=== PATIENT | male | born 1955 | race African-American/Black ===

== ENCOUNTER 2017-04-19 16:32 | Observation (INO) | payer OTHER ==
[2017-04-19 18:05] LABS: HEMATOCRIT 37.7 % (37.9-51.0); HEMOGLOBIN 12.9 g/dL (13.5-17.0); MEAN CORPUSCULAR HEMOGLOBIN 30.4 pg (27.0-33.4); MEAN CORPUSCULAR HGB CONC 34.2 g/dL (32.0-36.0); MEAN CORPUSCULAR VOLUME 89 fl (80-97); RED BLOOD COUNT 4.23 10^6/uL (4.35-5.55); RED CELL DISTRIBUTION WIDTH 13.5 % (11.5-14.0); WHITE BLOOD COUNT 8.2 10^3/uL (4.0-10.5)
[2017-04-19] MEDS: NORMAL SALINE 1000 ML 1,000 ML IV PRN (18:06)
[2017-04-19] MEDS ORDERED: INFLUENZA ADLT QUAD (36MOS+) 2017-18 VAC 0.5 ML SYR IM PRN (18:15)
[2017-04-19 18:37] LABS: ALANINE AMINOTRANSFERASE 28 U/L (21-72); ALBUMIN 4.6 g/dL (3.5-5.0); ALKALINE PHOSPHATASE 75 U/L (38-126); ANION GAP 14 (5-19); ASPARTATE AMINO TRANSFERASE 14 U/L (17-59); BILIRUBIN,DIRECT 0.4 mg/dL (0.0-0.4); BILIRUBIN,TOTAL 0.6 mg/dL (0.2-1.3); BLOOD UREA NITROGEN 39 mg/dL (7-20); CALCIUM 9.5 mg/dL (8.4-10.2); CARBON DIOXIDE 26 mmol/L (22-30); CHLORIDE 101 mmol/L (98-107); CREATINE KINASE 180 U/L (55-170); CREATININE RESULT 1.34 mg/dL (0.52-1.25); GLUCOSE 122 mg/dL (75-110); POTASSIUM 4.5 mmol/L (3.6-5.0); SODIUM 140.6 mmol/L (137-145); TOTAL PROTEIN 7.8 g/dL (6.3-8.2)
[2017-04-19 18:48] LABS: CREATINE KINASE MB 0.88 ng/mL (<4.55); TROPONIN I < 0.012 ng/mL
--- NOTE | 2017-04-19 20:59 | PDOC H&P ---
History of Present Illness Admission Date/PCP: 04/19/17 16:32 BRIANNA LAWSON MD History of Present Illness: NORBERTO DANIELLE is a 61 year old male, He has a history of type 2 diabetes mellitus , He sustained chest wall injury last week with fractures of multiple ribs, he was in the office yesterday for follow-up and for evaluation of intermittent palpitation with chest discomfort, blood work was done this acame back showing a serum creatinine of 1.8 consistent with acute kidney injury the lab work from a month ago showed a normal serum creatinine. Rhabdomyolysis was suspected as the etiology of the acute kidney injury, he was admitted for observation and for management of the acute kidney injury with fluid therapy. His serum creatinine from the blood work done today in the hospital is 1.3. Past Medical History Cardiac Medical History: Reports: Hypertension Endocrine Medical History: Reports: Diabetes Mellitus Type 2 Social History Smoking Status: Never Smoker Drugs: None Family History Parental Family History Reviewed: Yes Children Family History Reviewed: Yes Sibling(s) Family History Reviewed.: Yes Medication/Allergy Home Medications: RX: Aspirin [Ecotrin 81 mg EC Tablet] 81 mg PO DAILY 04/19/17 RX: Glimepiride [Amaryl 4 mg Tablet] 4 mg PO DAILY 04/19/17 RX: Losartan Potassium [Cozaar 100 mg Tablet] 100 mg PO DAILY 04/19/17 RX: Metformin HCl [Glucophage] 1,000 mg PO BID 04/19/17 Allergies/Adverse Reactions: No Known Allergies Allergy (Unverified 04/19/17 17:43) Review of Systems Constitutional: ABSENT: chills, fever(s), headache(s), weight gain, weight loss Eyes: ABSENT: visual disturbances Ears: ABSENT: hearing changes Cardiovascular: PRESENT: chest pain Respiratory: ABSENT: cough, hemoptysis Gastrointestinal: ABSENT: abdominal pain, constipation, diarrhea, hematemesis, hematochezia, nausea, vomiting Genitourinary: ABSENT: dysuria, hematuria Musculoskeletal: ABSENT: joint swelling Integumentary: ABSENT: rash, wounds Neurological: ABSENT: abnormal gait, abnormal speech, confusion, dizziness, focal weakness, syncope Psychiatric: ABSENT: anxiety, depression, homidical ideation, suicidal ideation Endocrine: ABSENT: cold intolerance, heat intolerance, menstrual abnormalities, polydipsia, polyuria Hematologic/Lymphatic: ABSENT: easy bleeding, easy bruising, lymphadenopathy Physical Exam Vital Signs: Temp Pulse Resp BP Pulse Ox 97.6 F 92 16 137/84 H 100 04/19/17 20:11 04/19/17 20:11 04/19/17 20:11 04/19/17 20:11 04/19/17 20:11 Intake & Output 04/18/17 04/19/17 04/20/17 06:59 06:59 06:59 Intake Total 0 Balance 0 Weight 93.7 kg General appearance: PRESENT: no acute distress, well-developed, well-nourished Head exam: PRESENT: atraumatic, normocephalic Eye exam: PRESENT: conjunctiva pink, EOMI, PERRLA. ABSENT: scleral icterus Ear exam: PRESENT: normal external ear exam Mouth exam: PRESENT: moist, tongue midline Neck exam: PRESENT: full ROM Respiratory exam: PRESENT: clear to auscultation mukul Cardiovascular exam: PRESENT: RRR, +S1, +S2 Pulses: PRESENT: normal dorsalis pedis pul, +2 pedal pulses bilateral Vascular exam: PRESENT: normal capillary refill GI/Abdominal exam: PRESENT: normal bowel sounds, soft Rectal exam: PRESENT: deferred Neurological exam: PRESENT: alert, awake, oriented to person, oriented to place , oriented to time, oriented to situation, CN II-XII grossly intact Psychiatric exam: PRESENT: appropriate affect, normal mood Skin exam: PRESENT: dry, intact, warm Results Laboratory Results: 04/19/17 17:45 04/19/17 17:45 04/19/17 04/19/17 17:45 17:45 WBC 8.2 RBC 4.23 L Hgb 12.9 L Hct 37.7 L MCV 89 MCH 30.4 MCHC 34.2 RDW 13.5 Plt Count 329 Sodium 140.6 Potassium 4.5 Chloride 101 Carbon Dioxide 26 Anion Gap 14 BUN 39 H Creatinine 1.34 H Est GFR ( Amer) > 60 Est GFR (Non-Af Amer) 54 L Glucose 122 H Calcium 9.5 Total Bilirubin 0.6 AST 14 L ALT 28 Alkaline Phosphatase 75 Total Protein 7.8 Albumin 4.6 04/19/17 04/19/17 04/19/17 17:45 17:45 17:45 Creatine Kinase 180 H 179 H CK-MB (CK-2) 0.88 Troponin I < 0.012 Assessment & Plan - Diagnosis (1) Acute kidney injury Is this a current diagnosis for this admission?: Yes Plan: Patient was admitted for the management of acute kidney injury in the setting of traumatic rhabdomyolysis (2) Rhabdomyolysis Qualifiers: Rhabdomyolysis type: traumatic Encounter type: initial encounter Qualified Code(s): T79.6XXA - Traumatic ischemia of muscle, initial encounter Is this a current diagnosis for this admission?: Yes
[2017-04-19] MEDS ORDERED: GLIMEPIRIDE 4 MG TABLET PO ONE (21:30)
[2017-04-19] MEDS ORDERED: ASPIRIN 81 MG TABLET, ENT COATED PO ONE (21:30)
--- NOTE | 2017-04-19 21:52 | RADIOLOGY REPORT (SQ) ---
EXAM DESCRIPTION: U/S RETROPERITON (RENAL/AORTA) COMPLETED DATE/TIME: 04/19/2017 7:50 pm REASON FOR STUDY: ACUTE KIDNEY INJURY COMPARISON: None. TECHNIQUE: Dynamic and static grayscale images acquired of the kidneys and bladder and recorded on P ACS. Additional selected color Doppler and spectral images recorded. LIMITATIONS: None. FINDINGS: RIGHT KIDNEY: 12 cm in length. Normal echogenicity. No solid or suspicious masses. S mall cyst is identified measuring 2.0 x 1.7 x 1.5 cm No hydronephrosis. No calcifications. LEFT KIDNEY: 12.1 cm in length. Normal echogenicity. No solid or suspicious masses. There is a questionable tiny subcentimeter cysts. No hydronephrosis. No calcifications. BLADDER: No masses. OTHER FINDINGS: No other significant finding. IMPRESSION: No significant renal abnormalities are identified. Other findings as noted above TECHNICAL DOCUMENTATION: JOB ID: [id number] [employer]- All Rights Reserved
[2017-04-19] MEDS ORDERED: LOSARTAN POTASSIUM 50 MG TABLET PO ONE (22:00)
[2017-04-19] MEDS ORDERED: METFORMIN HCL 500 MG TABLET PO ONE (22:00)
[2017-04-20 07:23] LABS: APPEARANCE,URINE CLEAR; BILIRUBIN,URINE NEGATIVE (NEGATIVE); GLUCOSE, URINE 50 mg/dL (NEGATIVE); KETONES,URINE NEGATIVE (NEGATIVE); LEUKOCYTE ESTERASE,URINE NEGATIVE (NEGATIVE); NITRITE,URINE NEGATIVE (NEGATIVE); PROTEIN,URINE NEGATIVE (NEGATIVE); URINE SPECIFIC GRAVITY 1.012; UROBILINOGEN,URINE NEGATIVE mg/dL (<2.0)
[2017-04-20 07:43] LABS: ANION GAP 13 (5-19); BLOOD UREA NITROGEN 24 mg/dL (7-20); CALCIUM 8.8 mg/dL (8.4-10.2); CARBON DIOXIDE 24 mmol/L (22-30); CHLORIDE 104 mmol/L (98-107); CREATININE RESULT 0.96 mg/dL (0.52-1.25); GLUCOSE 121 mg/dL (75-110); POTASSIUM 4.5 mmol/L (3.6-5.0); SODIUM 140.5 mmol/L (137-145)
--- NOTE | 2017-04-20 08:21 | EKG REPORT ---
SEVERITY:- NORMAL ECG - SINUS RHYTHM : Confirmed by: Omar Schwartz MD 20-Apr-2017 08:20:33
[2017-04-20] MEDS ORDERED: GLIMEPIRIDE 4 MG TABLET PO SCH (10:00)
[2017-04-20] MEDS ORDERED: METFORMIN HCL 500 MG TABLET PO SCH (10:00)
[2017-04-20] MEDS ORDERED: LOSARTAN POTASSIUM 50 MG TABLET PO SCH (10:00)
[2017-04-20] MEDS ORDERED: ASPIRIN 81 MG TABLET, ENT COATED PO SCH (10:00)
[2017-04-20] MEDS: NORMAL SALINE 1000 ML 1,000 ML IV PRN (13:12)
[2017-04-20 13:32] VITALS: BP 131/81
--- NOTE | 2017-04-20 14:36 | PDOC DISCHARGE SUMMARY ---
General - Admit/Disc Date/PCP Admission Date/Primary Care Provider: 04/19/17 16:32 BRIANNA LAWSON MD Discharge Date: 04/20/17 - Discharge Diagnosis (1) Acute kidney injury Is this a current diagnosis for this admission?: Yes (2) Rhabdomyolysis Is this a current diagnosis for this admission?: Yes (3) Traumatic rhabdomyolysis Is this a current diagnosis for this admission?: Yes (4) Type 2 diabetes mellitus Is this a current diagnosis for this admission?: Yes - Additional Information Discharge Diet: Diabetic Discharge Activity: Activity As Tolerated Home Medications: RX: Aspirin [Ecotrin 81 mg EC Tablet] 81 mg PO DAILY 04/19/17 RX: Glimepiride [Amaryl 4 mg Tablet] 4 mg PO DAILY 04/19/17 RX: Losartan Potassium [Cozaar 100 mg Tablet] 100 mg PO DAILY 04/19/17 RX: Metformin HCl [Glucophage] 1,000 mg PO BID 04/19/17 History of Present Illness History of Present Illness: NORBERTO DANIELLE is a 61 year old male, He has a history of type 2 diabetes mellitus , He sustained chest wall injury last week with fractures of multiple ribs, he was in the office yesterday for follow-up and for evaluation of intermittent palpitation with chest discomfort, blood work was done this acame back showing a serum creatinine of 1.8 consistent with acute kidney injury the lab work from a month ago showed a normal serum creatinine. Rhabdomyolysis was suspected as the etiology of the acute kidney injury, he was admitted for observation and for management of the acute kidney injury with fluid therapy. His serum creatinine from the blood work done today in the hospital is 1.3. Hospital Course Hospital Course: Patient was admitted for the management of acute kidney injury secondary to traumatic rhabdomyolysis, he was treated with IV fluid with normalization of kidney function. He was admitted for observation is stable to be discharged home today. Physical Exam Vital Signs: Temp Pulse Resp BP Pulse Ox 97.7 F 73 16 131/81 H 100 04/20/17 13:00 04/20/17 13:00 04/20/17 13:00 04/20/17 13:00 04/20/17 13:00 Intake & Output 04/19/17 04/20/17 04/21/17 06:59 06:59 06:59 Intake Total 2940 Balance 2940 Weight 93.7 kg General appearance: PRESENT: no acute distress, well-developed, well-nourished Head exam: PRESENT: atraumatic, normocephalic Eye exam: PRESENT: conjunctiva pink, EOMI, PERRLA. ABSENT: scleral icterus Ear exam: PRESENT: normal external ear exam Mouth exam: PRESENT: moist, tongue midline Neck exam: PRESENT: full ROM Respiratory exam: PRESENT: clear to auscultation mukul Cardiovascular exam: PRESENT: RRR, +S1, +S2 Pulses: PRESENT: normal dorsalis pedis pul, +2 pedal pulses bilateral Vascular exam: PRESENT: normal capillary refill GI/Abdominal exam: PRESENT: normal bowel sounds, soft Rectal exam: PRESENT: deferred Neurological exam: PRESENT: alert, awake, oriented to person, oriented to place , oriented to time, oriented to situation, CN II-XII grossly intact. ABSENT: motor sensory deficit Psychiatric exam: PRESENT: appropriate affect, normal mood Skin exam: PRESENT: dry, intact, warm Results Laboratory Results: 04/19/17 17:45 04/20/17 06:33 04/19/17 04/19/17 04/20/17 17:45 17:45 06:33 WBC 8.2 RBC 4.23 L Hgb 12.9 L Hct 37.7 L MCV 89 MCH 30.4 MCHC 34.2 RDW 13.5 Plt Count 329 Sodium 140.6 140.5 Potassium 4.5 4.5 Chloride 101 104 Carbon Dioxide 26 24 Anion Gap 14 13 BUN 39 H 24 H Creatinine 1.34 H 0.96 Est GFR ( Amer) > 60 > 60 Est GFR (Non-Af Amer) 54 L > 60 Glucose 122 H 121 H Calcium 9.5 8.8 Total Bilirubin 0.6 AST 14 L ALT 28 Alkaline Phosphatase 75 Total Protein 7.8 Albumin 4.6 Urine Color Urine Appearance Urine pH Ur Specific [place] Urine Protein Urine Glucose (UA) Urine Ketones Urine Blood Urine Nitrite Ur Leukocyte Esterase Urine WBC (Auto) Urine RBC (Auto) 04/20/17 06:40 WBC RBC Hgb Hct MCV MCH MCHC RDW Plt Count Sodium Potassium Chloride Carbon Dioxide Anion Gap BUN Creatinine Est GFR ( Amer) Est GFR (Non-Af Amer) Glucose Calcium Total Bilirubin AST ALT Alkaline Phosphatase Total Protein Albumin Urine Color STRAW Urine Appearance CLEAR Urine pH 5.0 Ur Specific [place] 1.012 Urine Protein NEGATIVE Urine Glucose (UA) 50 H Urine Ketones NEGATIVE Urine Blood NEGATIVE Urine Nitrite NEGATIVE Ur Leukocyte Esterase NEGATIVE Urine WBC (Auto) 0 Urine RBC (Auto) 0 04/19/17 04/19/17 04/19/17 17:45 17:45 17:45 Creatine Kinase 180 H 179 H CK-MB (CK-2) 0.88 Troponin I < 0.012 Impressions: Renal Ultrasound 04/19/17 00:00 IMPRESSION: No significant renal abnormalities are identified. Other findings as noted above
== END 2017-04-20 17:04 | disposition home or self-care (01) ==
LOC: 5 16:32
PROVIDERS: ADMIT Internal Medicine; ATTEND Internal Medicine
PROC: 3E0234Z Introduction of Serum, Toxoid and Vaccine into Muscle, Percutaneous Approach (ICD-10-PCS; principal; 2017-04-20)
DX: N17.9 Acute kidney failure, unspecified (principal); T79.6XXA Traumatic ischemia of muscle, initial encounter; X58.XXXA Exposure to other specified factors, initial encounter; E11.9 Type 2 diabetes mellitus without complications; I10 Essential (primary) hypertension; Z79.82 Long term (current) use of aspirin; Z79.84 Long term (current) use of oral hypoglycemic drugs; Z23 Encounter for immunization
CPT/HCPCS: 36415 ×2; 82553; 82962 ×2; 82550; 85027; 83874; 80076; 80048 ×2; 81001; 84484; 76770; 90686; 93005; 93010; G0378 ×2; G0379; J3490 ×2; J7030 ×2

== ENCOUNTER → 2018-06-26 | Outpatient (CLI) | payer MEDICARE, OTHER ==
--- NOTE | 2018-06-26 12:00 | RADIOLOGY REPORT (SQ) ---
EXAM DESCRIPTION: KNEE RIGHT 2 VIEWS COMPLETED DATE/TIME: 06/26/2018 8:07 am REASON FOR STUDY: PAIN IN RIGHT KNEE M25.561 PAIN IN RIGHT KNEE M25.571 PAIN IN RIGHT ANKLE AND YEFRI INTS OF RIGHT FOOT COMPARISON: None. NUMBER OF VIEWS: Two views. TECHNIQUE: AP and lateral radiographic images acquired of the right knee. LIMITATIONS: None. FINDINGS: MINERALIZATION: Normal. BONES: No acute fracture or dislocation. No worrisome bone lesions. JOINT: No effusion. SOFT TISSUES: No soft tissue swelling. No radio-opaque foreign body. OTHER: No other significant finding. IMPRESSION: NO RADIOGRAPHIC EVIDENCE OF ACUTE INJURY. TECHNICAL DOCUMENTATION: JOB ID: [id number] [employer]- All Rights Reserved Reading location - IP/workstation name: [email or web address]
--- NOTE | 2018-06-26 12:41 | RADIOLOGY REPORT (SQ) ---
EXAM DESCRIPTION: ANKLE RIGHT AP/LATERAL COMPLETED DATE/TIME: 06/26/2018 8:07 am REASON FOR STUDY: PAIN IN RIGHT ANKLE AND JOINTS OF RIGHT FOOT M25.561 PAIN IN RIGHT KNEE M25.571 PAIN IN RIGHT ANKLE AND JOINTS OF RIGHT FOOT COMPARISON: None. NUMBER OF VIEWS: Three views. TECHNIQUE: AP, lateral, and oblique radiographic images acquired of the right ankle. LIMITATIONS: None. FINDINGS: MINERALIZATION: Normal. BONES: No acute fracture or dislocation. No worrisome bone lesions. JOINTS: Loose bodies in the anterior ankle joint. No large osteophytes. SOFT TISSUES: No soft tissue swelling. No foreign body. OTHER: No other significant finding. IMPRESSION: Loose bodies in the anterior ankle joint. No acute findings. TECHNICAL DOCUMENTATION: JOB ID: [id number] [employer]- All Rights Reserved Reading location - IP/workstation name: [email or web address]
== END ==
LOC: OD 07:38
PROVIDERS: ATTEND Internal Medicine
DX: M25.561 Pain in right knee (principal); M25.571 Pain in right ankle and joints of right foot; M24.071 Loose body in right ankle